=== PATIENT | female | born 1960 | race Caucasian/White ===

== ENCOUNTER 2017-04-17 09:16 | Emergency (ER) | payer OTHER ==
[2017-04-17 09:33] VITALS: BP 126/76
--- NOTE | 2017-04-17 10:19 | UC ---
Complaint Female HPI - HPI Summary HPI Summary: Dysuria and frequency for a few days. She denies obvious swelling, discharge, pain with intercourse. She is monogamous. No vomiting or fever. She does douche. - History Of Current Complaint Chief Complaint: UCGU Stated Complaint: URINARY COMPLAINT Time Seen by Provider: 04/17/17 09:34 Hx Obtained From: Patient Onset/Duration: Gradual Onset, Lasting Days Timing: Constant Severity Initially: Mild Severity Currently: Moderate Character: Burning Aggravating Factor(s): Urination Alleviating Factor(s): Nothing Associated Signs And Symptoms: Positive: Back Pain. Negative: Fever, Vaginal Bleeding/Discharge, Vaginal Discharge, Genital Swelling, Genital Blisters - Allergies/Home Medications Allergies/Adverse Reactions: Allergies Allergy/AdvReac Type Severity Reaction Status Date / Time Adhesive Tape Allergy Rash Verified 04/17/17 09:33 Albuterol Allergy HEART Verified 04/17/17 09:33 PALPITATIONS Prednisone Allergy HEART Verified 04/17/17 09:33 PALPITATIONS Pseudoephedrine Allergy Palpitation Verified 04/17/17 09:33 [From [facility]] s Home Medications: Home Medications Cyclobenzaprine TAB* [Flexeril 10 MG TAB*] 5 mg 04/17/17 [History] PMH/Surg Hx/FS Hx/Imm Hx Previously Healthy: No - smoker, no hx of stones. - Surgical History Surgical History: Yes Surgery Procedure, Year, and Place: 2011 right shoulder, tonsils - Family History Known Family History: Positive: Other - no related urinary history. - Social History Lives: With Family Alcohol Use: None Substance Use Type: None Smoking Status (MU): Heavy Every Day Tobacco Smoker Type: Cigarettes Amount Used/How Often: 1/2-1 ppd Length of Time of Smoking/Using Tobacco: since age 18 yo Have You Smoked in the Last Year: Yes Household Exposure Type: Cigarettes - Immunization History Most Recent Influenza Vaccination: current for 2016/2017 Review of Systems Genitourinary: Dysuria, Frequency Musculoskeletal: Myalgia All Other Systems Reviewed And Are Negative: Yes Physical Exam Triage Information Reviewed: Yes Appearance: Well-Appearing, No Pain Distress, Well-Nourished Vital Signs: Initial Vital Signs Temp 97.1 F 04/17/17 09:28 Pulse 76 04/17/17 09:28 Resp 18 04/17/17 09:28 BP 126/76 04/17/17 09:28 Pulse Ox 100 04/17/17 09:28 Vital Signs Reviewed: Yes Eyes: Positive: Conjunctiva Clear ENT: Positive: Pharynx normal, Uvula midline. Negative: Pharyngeal erythema, Nasal congestion, Nasal drainage, TMs normal, TM bulging, TM dull, TM red, Tonsillar swelling, Tonsillar exudate, Trismus, Sinus tenderness Neck: Positive: Supple, Nontender, No Lymphadenopathy. Negative: Nuchal Rigidity Respiratory: Positive: Lungs clear, Normal breath sounds, No respiratory distress, No accessory muscle use. Negative: Respiratory distress, Decreased breath sounds, Accessory muscle use, Crackles, Rhonchi Cardiovascular: Positive: No Murmur, Pulses Normal, Brisk Capillary Refill Abdomen Description: Positive: No Organomegaly, Soft. Negative: CVA Tenderness (R), CVA Tenderness (L), Distended, Guarding Musculoskeletal: Positive: ROM Intact, No Edema Neurological: Positive: Alert, Muscle Tone Normal. Negative: Fatigued Skin: Negative: rashes Complaint Female Dx - Course Course Of Treatment: Dysuria with only small amount of blood. Low risk for STD or PID. With the low back pain and hx of douching we will treat for BV and yeast infection. If culture neg, she may stop the macrobid. If not better in general in 5 days, she will need to f/u with blunger loader. She agrees completely. - Differential Dx/Diagnosis Provider Diagnoses: dysuria. urinary frequency. Discharge - Discharge Plan Condition: Good Disposition: HOME Prescriptions: Fluconazole [Diflucan 150 MG (NF)] 150 mg PO ONCE #1 tab Metronidazole (Topical) [Metrogel] 1 % EX BID #10 gel Nitrofurantoin Monohyd Macro [Macrobid] 100 mg PO BID #20 cap Patient Education Materials: Dysuria (ED) Referrals: Seema BAPTISTE,Terrance Thayer [Primary Care Provider] - Leandro HERNANDEZ,Emmanuel Abraham [Doctor of Podiatric Medicine] -
[2017-04-17] MEDS ORDERED: Triamcinolone 0.5% OINT * 15 GM TUBE TOPICAL SCH (21:00)
--- NOTE | 2017-04-19 07:08 | UC ---
- Progress Note Progress Note: notify pt NO UTI stop macrobid see PMD if still symptomatic Course/Dx - Course Course Of Treatment: Dysuria with only small amount of blood. Low risk for STD or PID. With the low back pain and hx of douching we will treat for BV and yeast infection. If culture neg, she may stop the macrobid. If not better in general in 5 days, she will need to f/u with court interpreter. She agrees completely.
== END 2017-04-17 10:18 | disposition home or self-care (01) ==
LOC: UCCORT 09:16
DX: R30.0 Dysuria (principal); R35.0 Frequency of micturition; M79.1 Myalgia; Z88.8 Allergy status to other drugs, medicaments and biological substances; Z91.048 Other nonmedicinal substance allergy status; F17.210 Nicotine dependence, cigarettes, uncomplicated
CPT/HCPCS: 81003; 87086; 99212; G0463

== ENCOUNTER 2017-09-09 12:16 | Emergency (ER) | payer OTHER ==
[2017-09-09 12:23] VITALS: BP 114/72
--- NOTE | 2017-09-09 12:52 | UC ---
General HPI - HPI Summary HPI Summary: sore throat and has a coated white tongue after being on antibiotics 2 weeks ago for bronchitis - History of Current Complaint Chief Complaint: UCGeneralIllness Stated Complaint: THROAT COMPLAINT Time Seen by Provider: 09/09/17 12:43 Hx Obtained From: Patient Onset/Duration: Sudden Onset Timing: Constant Pain Intensity: 4 Pain Location at: throat and mouth - Allergy/Home Medications Allergies/Adverse Reactions: Allergies Allergy/AdvReac Type Severity Reaction Status Date / Time Adhesive Tape Allergy Rash Verified 04/17/17 09:33 albuterol Allergy heart Verified 09/09/17 12:25 racing prednisone Allergy heart Verified 09/09/17 12:24 racing pseudoephedrine Allergy heart Verified 09/09/17 12:24 [facility] racing Home Medications: Home Medications Aspirin [Aspir-Low] 81 mg PO DAILY 09/09/17 [History Confirmed 09/09/17] Atorvastatin* [Lipitor 40 MG*] 40 mg PO DAILY 09/09/17 [History Confirmed ] Fluticasone HFA 110 mcg(NF) [Flovent HFA 110 mcg(NF)] 09/09/17 [History] Spiriva Inhaler DEVICE* [Tiotropium Inhaler DEVICE*] 09/09/17 [History] PMH/Surg Hx/FS Hx/Imm Hx Previously Healthy: No - back pain Endocrine History: Dyslipidemia Respiratory History: COPD - Surgical History Surgical History: Yes Surgery Procedure, Year, and Place: 2011 right shoulder, tonsils - Family History Known Family History: Positive: Unknown, Other - Social History Occupation: Disabled Lives: With Family Alcohol Use: None Substance Use Type: None Smoking Status (MU): Heavy Every Day Tobacco Smoker Type: Cigarettes Amount Used/How Often: 1/2-1 ppd Length of Time of Smoking/Using Tobacco: since age 18 yo Have You Smoked in the Last Year: Yes Household Exposure Type: Cigarettes Cessation Counseling: Counseled 3+Min - 10 Min - Immunization History Most Recent Influenza Vaccination: current for Review of Systems Constitutional: Negative Skin: Negative Eyes: Negative ENT: Sore Throat, Other - mouth pain with white thick coated tongue Respiratory: Negative Cardiovascular: Negative Gastrointestinal: Negative Genitourinary: Negative Motor: Negative Neurovascular: Negative Musculoskeletal: Negative Neurological: Negative Psychological: Negative Is Patient Immunocompromised?: No All Other Systems Reviewed And Are Negative: Yes Physical Exam Triage Information Reviewed: Yes Appearance: Ill-Appearing - appearolder than stated age, Pain Distress - mild, Thin Vital Signs: Initial Vital Signs Temp 97.5 F 09/09/17 12:20 Pulse 87 09/09/17 12:20 Resp 16 09/09/17 12:20 BP 114/72 09/09/17 12:20 Pulse Ox 98 09/09/17 12:20 Vital Signs Reviewed: Yes Eye Exam: Normal Eyes: Positive: Conjunctiva Clear ENT Exam: Normal ENT: Positive: Normal ENT inspection, Hearing grossly normal, Pharyngeal erythema, TMs normal, Uvula midline, Other - thick white coating on tounge. Negative: Nasal congestion, Tonsillar swelling, Tonsillar exudate, Trismus, Muffled voice, Hoarse voice, Dental tenderness, Sinus tenderness Dental Exam: Normal Neck exam: Normal Neck: Positive: Supple, Nontender Respiratory Exam: Normal Respiratory: Positive: Chest non-tender, Lungs clear, Normal breath sounds, No respiratory distress, No accessory muscle use Cardiovascular Exam: Normal Cardiovascular: Positive: RRR, No Murmur, Pulses Normal, Brisk Capillary Refill Musculoskeletal Exam: Normal Musculoskeletal: Positive: Strength Intact, ROM Intact, No Edema Neurological Exam: Normal Neurological: Positive: Alert, Muscle Tone Normal Psychological Exam: Normal Skin Exam: Normal Diagnostics - Laboratory Diagnostic Studies Completed/Ordered: RST (+) Course/Dx - Course Course Of Treatment: amoxicillin, nystatin, continue smoking cesasation support and information - Differential Dx - Multi-Symptom Provider Diagnoses: thruch, strep pharyngitis, nicotine dependence Discharge - Sign-Out/Discharge Documenting (check all that apply): Discharge/Admit/Transfer - Discharge Plan Condition: Stable Disposition: HOME Prescriptions: Amoxicillin PO (*) [Amoxicillin 875 MG (*)] 875 mg PO BID #20 tab Nystatin SUSPENSION ORAL SYR* 500,000 units PO QID #300 ml Patient Education Materials: Strep Throat (ED), Oral Candidiasis (ED) Referrals: Terrance Bermeo [Primary Care Provider] - If Needed () - Billing Disposition and Condition Condition: STABLE Disposition: Home
== END 2017-09-09 13:30 | disposition home or self-care (01) ==
LOC: UCEAST 12:16
DX: B37.0 Candidal stomatitis (principal); J02.0 Streptococcal pharyngitis; F17.210 Nicotine dependence, cigarettes, uncomplicated; Z91.048 Other nonmedicinal substance allergy status; E78.5 Hyperlipidemia, unspecified; J44.9 Chronic obstructive pulmonary disease, unspecified
CPT/HCPCS: 87070; 87077; 87651; 99212; G0463

== ENCOUNTER 2017-10-21 08:27 | Emergency (ER) | payer OTHER ==
--- OUTSIDE RECORDS SUMMARY | 2017-10-21 08:35 | XMS REPORT ---
:1960 External Reference #:[id number] Author Organization [employer] Address [address] [place] [address] [place] [address] Phone [phone] Care Team Providers Name Role Phone Denice Davey NP Primary Care Physician Unavailable Payers Type Date Identification Numbers Payment Provider Subscriber Commercial Policy Number: [id number] Sumanth Zhong Group Name: [id number] [address] PayID: [id number] [place] [address] Workers Effective: Policy Number: State [employer] Laney B Compensation 2015 [id number] Elvira Zhong Onset: 2010 Group Number: [id number] [address] [id number] Group Name: [id number] [place] [id number] PayID: [id number] Workers Expires: Policy Number: State Insurance Laney B Compensation 2015 [id number] Elvira Zhong Onset: 2010 Group Number: [id number] [address] [id number] Group Name: [facility] [phone] [place] [address] PayID: [id number] Workers Compensation Policy Number: [id number] Controverted Laney Zhong PayID: [id number] Problems Date Description Provider Status Onset: 08/23/2016 Strain of musc/tend the rotator cuff of Delfino Patton MD Active left shoulder, subs Onset: 01/30/2016 Cervical spondylosis without myelopathy Emmanuel Padilla M.D. Active Onset: 01/13/2016 Brachial neuritis Delfino Patton MD Active Onset: 01/13/2016 Neck pain Delfino Patton MD Active Onset: 01/13/2016 Localized, secondary osteoarthritis of Delfino Patton MD Active the shoulder region Onset: 10/07/2015 Lesion of ulnar nerve Delfino Patton MD Active Onset: 01/11/2015 Disorder of shoulder Dima Rodriguez M.D. Active Onset: 12/20/2014 Disorder of bursa of shoulder region Dima Rodriguez M.D. Active Onset: 12/20/2014 Sprain of shoulder and upper arm Dima Rodriguez M.D. Active Family History Date Family Member(s) Problem(s) Comments General Diabetes General Heart Disease General Cancer Social History Type Date Description Comments Occupation Disabled ETOH Use Denies alcohol use Smoking Patient is a current smoker, smokes every day Recreational Drug Use Denies Drug Use Smoking Light tobacco smoker (10 or fewer cigarettes/day) Exercise Type/Frequency Exercises regularly Allergies, Adverse Reactions, Alerts Date Description Reaction Status Severity Comments 04/03/2013 Sudafed active 04/03/2013 Latex active 04/03/2013 Tape active 12/20/2014 Albuterol palpitations active 12/20/2014 Prednisone palpitations active Medications Medication Date Status Form Strength Qnty SIG Indications Ordering Provider Wires And Tabs For 05/17 Active Delfino TENS MD Abdi Empi TENS/Nmes 11/19 Active use as Dima pasquale Rodriguez M.D. Aspirin Active Tablets DR 81mg 1 by mouth Unknown /0000 every day Oxycodone HCL Active Tablets 5mg Take Half Unknown /0000 Tablet To One Tablet By Mouth Every 8 Hours as Directed Maxi Cyclobenzaprine Active Tablets 5mg Take One Unknown HCL /0000 Tablet By Mouth Every 12 Hours as Directed Maximum Daily Dose Atorvastatin 00 Active Tablets 80mg 1 by mouth Unknown Calcium /0000 every day Tylenol Active Capsules 325mg 2 tablets Unknown /0000 every 4 hours as needed for pain Albuterol Sulfate Active Nebulizer (2.5mg/3M 1 vial via Unknown /0000 L) 0.083% nebulizer 4 times daily as needed Diazepam 07/13 Hx Tablets 5mg 1tabs take 1 tab M75.42 30 min Felisa Patton prior to 10/02 procedure Naproxen Sodium 10/24 Hx Tablets 550mg 60tab 1 by mouth M47.812 s twice a Randy, - day after M.D. 10/02 Diclofenac Sodium 03/[address] 75mg 60tab take 1 M75.42 s tablet Yaseen, - twice a MD 01/29 day with food Valium 01/05 Hx Tablets 5mg 1tabs 1 tab by Dima mouth 1 Michael, - hour prior M.D. 01/29 to Ibuprofen 01/26 Hx Tablets 800mg 90tab po tid prn s Michael, - M.D. 08/31 Methylprednisolone 12/26 Hx Tablets 4mg 1tabs take as Dima Dose directed Michael, - M.D. 08/31 Lyrica 01/30 Hx Capsules 75mg 90cap 1 po bid s for 2 Young, - days, then M.D. 08/31 2 tabs bid for 3 days, then 3 tabs bid Tramadol HCL 10/03 Hx Tablets 50mg 90tab 1 tablets s every 8 , - hours as M.D. 08/31 needed for pain Acetaminophen/Code 08/22 Hx Tablets 300-60mg 28tab 1 tab by Dima s mouth Michael, - every 6 M.D. 08/31 hours prn pain Finley 07/24 Hx Tablets 5-325mg 20tab 1 tabs po s q6 h prn Michael, - pain M.D. 08/31 Percocet 07/18 Hx Tablets 5-325mg 60tab take 1-2 s tabs po Michael, - q4-6 hours M.D. 08/31 prn pain Cyclobenzaprine 01/22 Hx Tablets 10mg 30tab 1 tab by Dima s mouth Michael, - three M.D. 08/31 times a day spasm Oxycodone-Acetamin 00 Hx Unknown ophen /0000 - 01/11 Naproxen Hx Tablets 500mg 1 tablet Unknown /0000 with food - by mouth 10/02 twice a day Xopenex HFA 00/00 Hx Aerosol 45mcg/Act 2 puffs Unknown /0000 four times - a day as 10/02 Medications Administered in Office Medication Date Status Form Strength Qnty SIG Indications Ordering Provider Triamcinolone 01/12/ Administered Injection Zaneb (Kenalog) 2015 MD Abdi Depomedrol 80MG 02/14/ Administered Injection Dima 2014 Dameon Rodriguez Depomedrol 80MG 10/03/ Administered Injection Dima 2011 Dameon Rodriguez Depomedrol 80MG 12/05/ Administered Injection Dima 2010 Dameon Rodriguez Depomedrol 80MG 10/25/ Administered Injection Dima 2010 Dameon Rodriguez Depomedrol 80MG 08/22/ Administered Injection Dima 2010 Dameon Rodriguez Vital Signs Date Vital Result Comment 10/03/2017 Height 62 inches 5'2" Heart Rate 84 /min BP Systolic 118 mmHg BP Diastolic 70 mmHg Respiratory Rate 18 /min Body Temperature 98.6 F Pain Level 8 08/23/2016 Height 62 inches 5'2" Weight 137.00 lb BP Systolic 92 mmHg BP Diastolic 67 mmHg Respiratory Rate 15 /min Body Temperature 98.1 F Pain Level 4 BMI (Body Mass Index) 25.1 kg/m2 07/13/2016 Height 62 inches 5'2" Weight 137.00 lb Respiratory Rate 16 /min Pain Level 4 BMI (Body Mass Index) 25.1 kg/m2 01/30/2016 Height 62 inches 5'2" Weight 137.00 lb Heart Rate 82 /min BP Systolic Sitting 130 mmHg BP Diastolic Sitting 80 mmHg Pain Level 4 BMI (Body Mass Index) 25.1 kg/m2 01/13/2016 Height 62 inches 5'2" Weight 132.00 lb Heart Rate 60 /min Respiratory Rate 16 /min Pain Level 5 BMI (Body Mass Index) 24.1 kg/m2 12/01/2015 Height 62 inches 5'2" Weight 132.00 lb Pain Level 4 BMI (Body Mass Index) 24.1 kg/m2 10/07/2015 Height 62 inches 5'2" Weight 120.00 lb Pain Level 4 BMI (Body Mass Index) 21.9 kg/m2 07/12/2015 Height 62 inches 5'2" Weight 120.00 lb Pain Level 6 BMI (Body Mass Index) 21.9 kg/m2 07/05/2015 Height 62 inches 5'2" Weight 120.00 lb Pain Level 7 BMI (Body Mass Index) 21.9 kg/m2 05/03/2015 Height 62 inches 5'2" Weight 120.00 lb BMI (Body Mass Index) 21.9 kg/m2 03/14/2015 Height 62 inches 5'2" Weight 120.00 lb BMI (Body Mass Index) 21.9 kg/m2 02/14/2015 Height 62 inches 5'2" Weight 120.00 lb Pain Level 6 BMI (Body Mass Index) 21.9 kg/m2 01/11/2015 Height 62 inches 5'2" Weight 120.00 lb Pain Level 5 constant BMI (Body Mass Index) 21.9 kg/m2 12/20/2014 Height 62 inches 5'2" Weight 110.00 lb Pain Level 5 BMI (Body Mass Index) 20.1 kg/m2 09/01/2013 Height 62 inches 5'2" Heart Rate 79 /min BP Systolic 117 mmHg BP Diastolic 84 mmHg 06/04/2013 Height 62 inches 5'2" Weight 110.00 lb Heart Rate 75 /min BP Systolic 110 mmHg BP Diastolic 77 mmHg BMI (Body Mass Index) 20.1 kg/m2 08/22/2010 Height 61 inches 5'1" Weight 100.00 lb Heart Rate 64 /min BP Systolic 99 mmHg BP Diastolic 65 mmHg BMI (Body Mass Index) 18.9 kg/m2 Results Description No Information Procedures Date CPT Code Description Status 01/13/2016 Inject/Drain Joint/Bursa Intermediate W/O US Completed 01/13/2016 Inject/Drain Joint/Bursa Intermediate W/O US Completed 02/14/2015 Inject/Drain Joint/Bursa Major W/O US Completed 10/04/2011 Inject/Drain Joint/Bursa Intermediate W/O US Completed 07/20/2011 60982 Arthroscopy Biceps Tenodesis Completed 07/20/2011 60564 Arthroscopy Biceps Tenodesis Completed 07/20/2011 42479 Arthroscopy,Shoulder Decompression Of Subacromial Space Completed W/Acromio 07/20/2011 38500 Arthroscopy,Shoulder Decompression Of Subacromial Space Completed W/Acromio 12/05/201004056 Inject/Drain Joint/Bursa Major W/O US Completed 10/25/2010 Inject/Drain Joint/Bursa Major W/O US Completed 08/22/2010 72101 Rad Shoulder Comp, Min. 2 Views Completed 08/22/2010 34968 Inject/Drain Joint/Bursa Major W/O US Completed Encounters Type Date Location Provider CPT E/M Dx Office Visit 08/23/2016 8:45a [facility] [place] [address] M75.42 C.M.A. M19.212 S46.012D Office Visit 07/13/2016 8:45a [facility] [place] [address] M75.42 C.M.A. M19.212 M54.12 M75.41 M75.42 Office Visit 01/30/2016 11:30a [facility] Emmanuel Padilla, 40398 M47.812 Of Jaimie Xiao Office Visit 01/13/2016 10:30a [facility] [place] [address] M75.42 C.M.A. M75.42 M19.212 M19.212 M54.12 M54.2 M54.12 M75.42 M19.212 M54.12 Office Visit 12/01/2015 8:15a [facility] [place] [address] R20.2 C.M.A. M75.42 M75.41 Office Visit 10/07/2015 11:30a [facility] [place] [address] G56.21 C.M.A. G56.22 R20.2 G56.21 Office Visit 07/12/2015 10:45a [facility] [place] [address] M75.42 C.M.A. M75.42 M75.41 M75.41 Office Visit 07/05/2015 11:30a [facility] [place] [address] M75.42 C.M.A. M75.42 M75.41 M75.41 Office Visit 05/03/2015 11:30a [facility] [place] [address] M75.42 C.M.A. M75.41 M75.42 Office Visit 03/14/2015 10:15a [facility] [place] [address] M75.42 C.M.A. M75.41 Office Visit 02/14/2015 9:45a [facility] Dima Rodriguez M.D. 48249 M75.42 C.M.A. Office Visit 01/11/2015 3:00p [facility] Dima Rodriguez M.D. 96941 M75.42 C.M.A. Office Visit 12/20/2014 10:30a [facility] Dima Rodriguez M.D. 51030 726.10 C.M.A. 840.8 840.8 726.10 840.8 Office Visit 04/07/2013 3:00p [facility] Dima Rodriguez M.D. 03013 726.10 C.M.A. 726.10 Office Visit 06/27/2012 11:30a [facility] Dima Rodriguez M.D. 68723 840.8 Of C.M.A. Office Visit 06/05/2012 9:00a [facility] EMILE Strange 94653 719.42 Of C.M.A. Office Visit 03/06/2012 10:30a [facility] Cordell Guzmán 36040 719.42 Of C.M.A. Inna Swift Office Visit 01/31/2012 9:45a [facility] Dima Rodriguez M.D. 04552 723.4 Of C.M.A. Office Visit 11/27/2011 9:30a [facility] Dima Rodriguez M.D. 97813 719.41 Of C.M.A. Office Visit 06/19/2011 1:15p [facility] Dima Rodriguez M.D. 24965 726.2 Of C.M.A. Office Visit 01/22/2011 3:15p [facility] Dima Rodriguez M.D. 07877 726.10 Of C.M.A. Office Visit 12/05/2010 8:45a [facility] Dima Rodriguez M.D. 56162 726.10 Of C.M.A. 726.0 Office Visit 10/25/2010 9:15a [facility] Dima Rodriguez M.D. 49654 726.0 C.M.A. Office Visit 09/19/2010 11:15a [facility] Dima Rodriguez M.D. 09945 840.9 C.M.A. Office Visit 09/05/2010 1:45p [facility] Dima Rodriguez M.D. 82342 840.9 C.M.A. Office Visit 08/22/2010 10:30a [facility] Dima Rodriguez M.D. 04994 840.9 C.M.A. 840.9 Plan of Care 10/03/2017 - Delfino Patton, MDM75.42 Impingement syndrome of left shoulderNew Xrays:Shoulder Complete Bilat Min Of 2 ViewsFollow up:Follow up: as bqgiaoN45.212 Secondary osteoarthritis, left shoulderNew Xrays:Shoulder Complete Bilat Min Of 2 NfgpaZ34.012D Strain of musc/tend the rotator cuff of left shoulder, subsM75.41 Impingement syndrome of right shoulder
[2017-10-21 08:38] VITALS: BP 107/76
--- NOTE | 2017-10-21 08:58 | RAD ---
Indication: Left fifth toe injury. 3 views of the left fifth digit demonstrates fracture of the left fifth proximal phalanx and the distal end. No significant displacement is noted although mild comminution is noted. IMPRESSION: Mildly comminuted fracture distal and proximal phalanx left fifth toe.
--- NOTE | 2017-10-21 09:26 | UC ---
Lower Extremity/Ankle HPI - HPI Summary HPI Summary: Pt c/o left 5th toe pain s/p stubbing pain on toy box last night - History of Current Complaint Chief Complaint: UCLowerExtremity Stated Complaint: LT FT/PINKY TOE Time Seen by Provider: 10/21/17 08:41 Hx Obtained From: Patient ?: No Onset/Duration: Sudden Onset, Lasting Hours Severity Initially: Moderate Severity Currently: Moderate Pain Intensity: 6 Aggravating Factor(s): Standing, Ambulation Alleviating Factor(s): Rest, Elevation Able to Bear Weight: Yes - minimal - Risk Factors Gout Risk Factors: Age Over 40 DVT Risk Factors: Smoking Septic Arthritis Risk Factor: Negative - Allergies/Home Medications Allergies/Adverse Reactions: Allergies Allergy/AdvReac Type Severity Reaction Status Date / Time Adhesive Tape Allergy Rash Verified 10/21/17 08:38 albuterol Allergy heart Verified 10/21/17 08:38 racing prednisone Allergy heart Verified 10/21/17 08:38 racing pseudoephedrine Allergy heart Verified 10/21/17 08:38 [From [facility]] racing PMH/Surg Hx/FS Hx/Imm Hx Previously Healthy: Yes Endocrine History: Dyslipidemia Respiratory History: COPD - Surgical History Surgical History: Yes Surgery Procedure, Year, and Place: 2011 right shoulder, tonsils - Family History Known Family History: Positive: Unknown, Other - Social History Occupation: Retired Alcohol Use: None Substance Use Type: None Smoking Status (MU): Heavy Every Day Tobacco Smoker Type: Cigarettes Amount Used/How Often: 1/2-1 ppd Length of Time of Smoking/Using Tobacco: since age 18 yo Have You Smoked in the Last Year: Yes Household Exposure Type: Cigarettes - Immunization History Most Recent Influenza Vaccination: current for Review of Systems Constitutional: Negative Skin: Negative Eyes: Negative ENT: Negative Respiratory: Negative Cardiovascular: Negative Gastrointestinal: Negative Genitourinary: Negative Motor: Decreased ROM - left 5th toe Neurovascular: Negative Musculoskeletal: Arthralgia, Decreased ROM, Edema, Myalgia - left 5th toe Neurological: Negative Psychological: Negative Is Patient Immunocompromised?: No All Other Systems Reviewed And Are Negative: Yes Physical Exam Triage Information Reviewed: Yes Appearance: Well-Appearing Vital Signs: Initial Vital Signs Temp 97.8 F 10/21/17 08:33 Pulse 83 10/21/17 08:33 Resp 18 10/21/17 08:33 BP 107/76 10/21/17 08:33 Pulse Ox 97 10/21/17 08:33 Vital Signs Reviewed: Yes Eye Exam: Normal ENT Exam: Normal ENT: Positive: Hearing grossly normal Dental Exam: Normal Neck exam: Normal Respiratory: Positive: No respiratory distress Musculoskeletal: Positive: Strength Limited @ - left 5th toe, ROM Limited @ - left 5th toe Neurological Exam: Normal Psychological Exam: Normal Skin Exam: Normal Lower Extremity Course/Dx - Differential Dx/Diagnosis Differential Diagnosis/HQI/PQRI: Contusion, Fracture (Closed), Sprain, Strain Provider Diagnoses: left 5th toe fracture Discharge - Sign-Out/Discharge Documenting (check all that apply): Patient Departure - Discharge Plan Condition: Stable Disposition: HOME Patient Education Materials: Toe Fracture (ED), R.I.C.E. Treatment (ED) Referrals: Yaniv Bailon MD [Medical Doctor] - If Needed Terrance Bermeo [Primary Care Provider] - If Needed - Billing Disposition and Condition Condition: STABLE Disposition: Home
== END 2017-10-21 09:21 | disposition home or self-care (01) ==
LOC: UCCORT 08:27
DX: S92.502A Displaced unspecified fracture of left lesser toe(s), initial encounter for closed fracture (principal); W22.8XXA Striking against or struck by other objects, initial encounter; Y92.9 Unspecified place or not applicable; E78.5 Hyperlipidemia, unspecified; J44.9 Chronic obstructive pulmonary disease, unspecified; F17.210 Nicotine dependence, cigarettes, uncomplicated
CPT/HCPCS: 99213; G0463

== ENCOUNTER 2018-06-25 06:31 | Day surgery (SDC) | payer OTHER ==
--- NOTE | 2018-04-11 17:20 | HP ---
PREOPERATIVE HISTORY AND PHYSICAL: DATE OF ADMISSION/SURGERY: 04/16/18 ATTENDING SURGEON: Dr. Delfino Patton.* (DICTATED BY MONIE BESS) PROCEDURE: Left shoulder arthroscopic excision of distal clavicle, decompression, debridement, and possible biceps tenotomy. CHIEF COMPLAINT: Left shoulder pain. HISTORY OF PRESENT ILLNESS: Laney is a 57-year-old female who presents to clinic for left shoulder pain due to AC joint arthritis and biceps tendinitis and impingement. She has failed conservative measures and therefore agreed to undergo left shoulder arthroscopic excision of distal clavicle, decompression, debridement, and possible biceps tenotomy with Dr. Patton on 04/16/18. PAST MEDICAL HISTORY: History of AMI, high cholesterol, COPD, arthritis, and recent pneumonia. PAST SURGICAL HISTORY: Right shoulder surgery, tonsillectomy, cardiac cath with no stent, and tooth extraction. The patient has a history of an AMI after anesthesia in the past. MEDICATIONS: 1. Aspirin 81 mg by mouth every day. 2. Oxycodone 5 mg 1 every 8 hours. 3. Cyclobenzaprine 5 mg 1 by mouth every 12 hours. 4. Atorvastatin 80 mg 1 by mouth every day. 5. Tylenol 325 two tabs every 4 hours as needed for pain. 6. Vitamin D 2000 units 1 daily. 7. Nicotine 21 mg for 24 hours as directed. 8. Spiriva 2.5 mcg/act 2 puffs every day. 9. Levalbuterol 45 mcg/act 1 puff every 6 hours as needed. ALLERGIES: SUDAFED, LATEX, TAPE, ALBUTEROL, and PREDNISONE. FAMILY HISTORY: Positive for heart disease. Father of an AMI. Brother had a heart attack. Mother of an uterine cancer. Denies family history of DVT or PE. SOCIAL HISTORY: She lives with her boyfriend. She smokes 6 to 8 cigarettes a day. She is left hand dominant. She denies alcohol use. REVIEW OF SYSTEMS: A 14-point review of systems was reviewed with the patient and positive for current complaints, otherwise negative. Denies fevers, chills , chest pain, shortness of breath, history of DVT or PE, or history bleeding disorder. PHYSICAL EXAMINATION GENERAL: A 57-year-old well-developed, well-nourished female in no acute distress. VITAL SIGNS: Height 62, weight 138. Blood pressure 113/71, respiratory rate 16. BMI 25.2. HEENT: Normocephalic, atraumatic, PERRLA. NECK: Supple. Throat clear. PULMONARY: Lungs are clear to auscultation bilaterally. No wheezing, rhonchi, or rales. CARDIAC: Regular rate and rhythm. S1 and S2. No murmurs, gallops, or rubs. No edema. ABDOMEN: Positive bowel sounds. Soft and nontender. NEUROLOGIC: Alert and oriented x3. Cranial nerves are grossly intact. MUSCULOSKELETAL: Left upper extremity skin is intact. Diffuse tenderness. Forward flexion to 45, abduction to 45. Full range of motion of the elbow, wrist, and hand. +4/5 strength to rotator cuff testing with pain. Positive impingement, Speed, Melendez-Spencer, Swengel. +2 radial pulse. Sensation intact to light touch distally. DIAGNOSTIC STUDIES/LAB DATA: MRI of the left shoulder revealed AC joint arthritis, supraspinatus tendinopathy, with no evidence of full-thickness rotator cuff tear, and fluid around the biceps. PLAN/RECOMMENDATIONS: The patient is scheduled to undergo left shoulder arthroscopic excision of distal clavicle, decompression, debridement, and possible biceps tenotomy with Dr. Patton on 04/16/18. She has been cleared by her primary care physician and had a recent x-ray that showed her pneumonia has resolved. She had a stress test, which she passed. She will follow up in 10 to 14 days postoperatively, follow up for suture removal. Oxycodone will be used for postop pain management. MONIE BESS [id number]/[facility] #: [id number] [facility]ITALWinnie
[~2018-06-25 06:31] MED LIST: Buffered Lidocaine 0.9% SYRIN* 5 ML/SYR SYRINGE INTRADERM ONE; Buffered Lidocaine 1% SYRIN* 1 ML/SYRINGE INTRADERM ONE; Dexamethasone IV* 4 MG/ML 1 ML (4 MG) IV SLOW PU ONE; Famotidine IV* 10 MG/ML 2 ML (20 mg) IV ONE; Lactated Ringers 1000 ML Bag* 1,000 ML IV SCH; Levalbuterol 0.63MG/3ML NEB* UNIT OF USE INH ONE
[2018-06-25] MEDS ORDERED: Famotidine IV* 10 MG/ML 2 ML (20 mg) ONE (07:19)
[2018-06-25] MEDS ORDERED: ceFAZolin 2 GM in NS PREMIX(*) 2 GM/100 ML BAG IVPB ONE (07:19)
[2018-06-25] MEDS ORDERED: Dexamethasone IV* 4 MG/ML 1 ML (4 MG) ONE (07:19)
[2018-06-25] MEDS ORDERED: Levalbuterol 1.25MG/0.5ML NEB ONE ×2 (07:19→12:02)
[2018-06-25] MEDS: Levalbuterol 1.25MG/0.5ML NEB INH ONE ×2 (07:37→12:08)
[2018-06-25] MEDS ORDERED: fentaNYL* 50 MCG/ML 2 ML VIAL (100 MCG VIAL) ONE ×2 (08:44→12:21)
[2018-06-25] MEDS ORDERED: HYDROmorphone INJ1* 1 MG/ML SYRINGE ONE ×2 (08:44→12:43)
[2018-06-25] MEDS ORDERED: Midazolam* 1 MG/ML 5 ML VIAL (5 MG) ONE (08:44)
[2018-06-25] MEDS ORDERED: Rocuronium* 10 MG/ML VIAL ONE (08:45)
[2018-06-25] MEDS ORDERED: Lidocaine 2% PF * 5 ML VIAL ONE (08:45)
[2018-06-25] MEDS ORDERED: Propofol* 10 MG/ML 20 ML BTL ONE (08:45)
[2018-06-25] MEDS ORDERED: KETAMINE HCL* 50 MG/ML 10 ML VIAL ONE (08:46)
[2018-06-25] MEDS ORDERED: DiMENhydriNATE IV* 50 MG/ML VIAL IV PUSH PRN (09:14)
[2018-06-25] MEDS ORDERED: HYDROmorphone INJ1* 1 MG/ML SYRINGE IV PRN (09:14)
[2018-06-25] MEDS ORDERED: Naloxone* 0.4 MG/ML 1 ML VIAL IV PRN (09:14)
[2018-06-25] MEDS ORDERED: Acetaminophen IV 1GM/100ML * 1,000 MG/100 ML VIAL IVPB ONE (09:14)
[2018-06-25] MEDS ORDERED: HYDROcodone/ACETAMIN 5-325 MG* 1 TAB PO PRN (09:14)
[2018-06-25] MEDS ORDERED: Lidocaine 1% INJ* 10 MG/ML 30 ML SDV ONE (09:15)
[2018-06-25] MEDS ORDERED: ROPIVACAINE 5 MG/ML 30 ML BTL (0.5%) ONE (09:15)
[2018-06-25] MEDS ORDERED: Lidocaine 1% MPF wEPI 200,000* 30 ML SDV ONE (09:17)
[2018-06-25] MEDS ORDERED: Ropivacaine* 2 MG/ML 20 ML VIAL (0.2%) ONE (09:18)
[2018-06-25] MEDS ORDERED: Ondansetron INJ* 2 MG/ML VIAL ONE (10:43)
[2018-06-25] MEDS ORDERED: Sugammadex * 200 MG/2 ML VIAL IV PUSH ONE (11:15)
[2018-06-25] MEDS ORDERED: Levalbuterol HFA INHALER* 1 PUFF MDI ONE (11:36)
[2018-06-25] MEDS ORDERED: Hydrocortisone INJ* 100 MG VIAL ONE (11:38)
[2018-06-25] MEDS ORDERED: methylPREDNISolone SOD 40 MG* 1 ML VIAL ONE (11:38)
[2018-06-25] MEDS ORDERED: Naloxone* 0.4 MG/ML 10 ML VIAL ONE (11:45)
[2018-06-25] MEDS ORDERED: Acetaminophen IV 1GM/100ML * 100 ML ONE (11:49)
[2018-06-25] MEDS: fentaNYL* 50 MCG/ML 2 ML VIAL (100 MCG VIAL) IV PRN ×2 (12:22→12:33)
[2018-06-25] MEDS ORDERED: HYDROcodone/ACETAMIN 5-325 MG* 1 TAB ONE (12:43)
[2018-06-25 15:34] VITALS: BP 120/78
--- NOTE | 2018-06-26 04:56 | OP ---
DATE OF OPERATION: 06/25/18 [facility] DATE OF : 62 SURGEON: Delfino Patton MD. VENDING MACHINE FILLER: MONIE Hyatt. An boiler assistant operator was needed for the entirety of the case to help with positioning, retraction, and utilized throughout all portions of the case. ANESTHESIOLOGIST: Dr. Houston. ANESTHESIA: General. PRE-OP DIAGNOSIS: Left shoulder impingement, acromioclavicular joint arthritis , bicipital tendinitis, partial-thickness tear of the rotator cuff. POST-OP DIAGNOSIS: Left shoulder impingement, acromioclavicular joint arthritis , bicipital tendinitis, partial-thickness tear of the rotator cuff. OPERATIVE PROCEDURE: Left shoulder arthroscopy with: 1. Extensive glenohumeral debridement including biceps tenotomy. 2. Subacromial decompression with acromioplasty. 4. Distal clavicle excision. 5. Rotator cuff repair using Regeneten patch. COMPLICATIONS: None. ESTIMATED BLOOD LOSS: Minimal. INDICATIONS: Laney Zhong is a 57-year-old female with a work-related injury that happened several years ago and has persistent bilateral shoulder pain. She declined surgery for years and then decided to do it as her pain got worse. I told her she is not a candidate for injection anymore. After extensive discussion of the risks and benefits of surgical treatment, she has elected to proceed with surgical treatment. Risks include but are not limited to bleeding, infection, damage to nerves, vessels, surrounding structures, wound nonhealing, persistent pain, need for surgery, scarring, stiffness, incomplete relief of symptoms, risks of anesthesia. She underwent preoperative medical risk optimization prior to surgery. DESCRIPTION OF PROCEDURE: The patient was greeted in the preoperative area by the attending surgeon. Correct extremity was marked and consent was confirmed. The patient was brought back to the operating suite where she was placed in the supine position on the operating table and underwent general anesthesia and endotracheal intubation, after which she was placed in the right lateral decubitus position. All bony prominences were padded. She was secured with pegboard. An axillary roll was placed. The left shoulder was draped unsterile with 10 pounds of traction. The left shoulder was then prepped and draped in the usual sterile fashion using chlorhexidine soap, scrub, and alcohol wipe and final prep with ChloraPrep. After appropriate surgical pause indicating site, side, procedure, and administration of antibiotics, the posterolateral portal was made sharply with an 11 blade. The scope was introduced into the joint and the joint was examined. The supraspinatus was intact. The superior labrum was torn. The biceps totally was damaged. The undersurface of the subscap had some mild fraying. The anteroposterior superior labrum had unstable fraying. The inferior recess was intact. Glenohumeral joint had grade 1 changes. An anterior portal was made in an outside-in fashion. Shaver was used to debride back the glenoid. The biceps was then tenotomized for later tenodesis. Attention was then directed to the subacromial space. The scope was positioned in the subacromial space. A lateral portal was made in an outside-in fashion. There was abundant thick bursa that was present all throughout the shoulder. This was tedious but removed carefully using the shaver. Electrocautery device was used to maintain homeostasis. Once this was removed, the undersurface of the acromion was skeletonized. It had a large hematoma or scar tissue. This was debrided back using the 4-0 oval bur. All loose debris was removed and then attention was directed to the AC joint. The bur was brought to the anterior portal and the distal 8 mm of the clavicle was then removed using the bur with care not to damage the CC ligament. All loose debris and tissues were removed. Attention was directed to the rotator cuff. At this point, the cuff was exposed. There were areas of partial-thickness tearing of the bursal side. This corresponded with some areas on the MRI. There was concern that she may have more of a bursal-sided tear than it was apparent. The decision was made to proceed with the Regeneten patch. This would help ameliorate her symptoms. At this point, a medium size patch was brought into field, placed under arthroscopic visualization. This was secured with a tendon libertad medially and laterally. It was found to be stable. After it was probed and positioned and final images were obtained, the wounds were copiously irrigated with sterile saline. The portals were closed with 3-0 nylon. Sterile dressings were applied, and regular sling was applied as well as a Cryo/Cuff. She was awoken from anesthesia and transferred to the PACU in stable condition. POSTOPERATIVE PLAN: She will be nonweightbearing. She will start therapy in the next week. She will get out of the sling in the next couple of days. She will work on range of motion. I will see the patient back in 10 to 14 days. [id number]/[facility] #: [id number] MTDD
== END 2018-06-25 15:36 | disposition home or self-care (01) ==
LOC: OR 06:31
PROVIDERS: ATTEND Orthopaedic Surgery
DX: M75.42 Impingement syndrome of left shoulder (principal); M19.012 Primary osteoarthritis, left shoulder; M75.22 Bicipital tendinitis, left shoulder; M75.102 Unspecified rotator cuff tear or rupture of left shoulder, not specified as traumatic; M75.32 Calcific tendinitis of left shoulder; I25.5 Ischemic cardiomyopathy; Z72.0 Tobacco use; J44.9 Chronic obstructive pulmonary disease, unspecified; E78.5 Hyperlipidemia, unspecified; E55.9 Vitamin D deficiency, unspecified; I25.10 Atherosclerotic heart disease of native coronary artery without angina pectoris
CPT/HCPCS: A9270-GY; C1713; J0690; J1100; J1170; J1720; J2001; J2250; J2310; J2405; J2704; J2795; J2920; J3010